=== PATIENT | female | born 1925 | race Caucasian/White ===

== ENCOUNTER 2016-11-20 20:15 | Observation (INO) | payer MEDICARE ==
[~2016-11-20 20:15] MED LIST: LISINOPRIL; LISINOPRIL5 M1 PO; Lisinopril MC; MULTI VITAMIN1 EAC1 PO; VARIOUS VITAMINS; VITAMIN B12
[2016-11-20 21:09] LABS: BASO % 0.7 % (0-2); EOS % 0.3 % (0-7); HCT-HEMATOCRIT 36.6 % (34.0-49.0); HGB-HEMOGLOBIN 12.7 gm/dl (12.0-15.5); LYMPH % 20.4 % (20-45); LYMPH ABSOLUTE COUNT 0.6 tho/cmm (0.8-4.5); MCH (MEAN CORPUSCULAR HGB) 35.9 pg (28.0-32.0); MCHC MEAN CORPUSCULAR HGB CONC 34.7 % (32.0-36.0); MCV (MEAN CELL VOLUME) 103.4 fl (82.0-96.0); MEAN PLATELET VOLUME 11.5 cmc (9.4-12.4); MONOCYTE ABSOLUTE COUNT 0.3 tho/cmm (0.0-1.2); NEUTROPHIL ABSOLUTE COUNT 2.1 tho/cmm (1.6-8.0); NEUTROPHIL-AUTOMATED 2.1 tho/cmm (1.6-8.0); NEUTROPHILS % 68.6 % (40-80); RED BLOOD COUNT 3.54 mil/cmm (4.00-5.20); RED CELL DISTRIBUTION WIDTH 12.3 % (12.4-16.4)
[2016-11-20 21:41] LABS: URINE APPEARANCE CLEAR; URINE BILIRUBIN SMALL (NEG); URINE BLOOD LARGE (NEG); URINE COLOR YELLOW; URINE GLUCOSE (UA) NEGATIVE (NEG); URINE KETONE LARGE (NEG); URINE LEUKOCYTE ESTERASE POSITIVE (NEG); URINE NITRITE NEGATIVE (NEG); URINE PROTEIN MODERATE (NEG); URINE SPECIFIC GRAVITY 1.025 (1.003-1.030)
[2016-11-20 21:42] LABS: URINE EPITHELIAL CELLS 0-2 /[HPF] (0-10); URINE RBC 0-2 /[HPF] (0-5)
[2016-11-20 21:49] LABS: PLATELET COUNT 47 tho/cmm (150-450)
[2016-11-20 21:51] LABS: ANION GAP 11 mmol/L (0-20); BLOOD UREA NITROGEN 18 mg/dl (6-24); CALCIUM 8.7 mg/dl (8.5-10.5); CARBON DIOXIDE-VENOUS 29 mmol/L (22-32); CHLORIDE 97 mmol/l (96-110); CREATININE 0.59 mg/dl (0.50-1.10); GLUCOSE 125 mg/dL (70-110); POTASSIUM 3.8 mmol/L (3.7-5.1); SODIUM 133 mmol/L (135-145); eGFR VALUE FOR BLACK >90 mL/Min
[2016-11-21 10:09] LABS: BASO % 0.4 % (0-2); EOS % 0.4 % (0-7); HGB-HEMOGLOBIN 12.3 gm/dl (12.0-15.5); LYMPH % 33.2 % (20-45); LYMPH ABSOLUTE COUNT 0.9 tho/cmm (0.8-4.5); MCH (MEAN CORPUSCULAR HGB) 36.2 pg (28.0-32.0); MCHC MEAN CORPUSCULAR HGB CONC 35.1 % (32.0-36.0); MCV (MEAN CELL VOLUME) 102.9 fl (82.0-96.0); MONO % 8.3 % (0-12); MONOCYTE ABSOLUTE COUNT 0.2 tho/cmm (0.0-1.2); NEUTROPHIL ABSOLUTE COUNT 1.5 tho/cmm (1.6-8.0); NEUTROPHIL-AUTOMATED 1.5 tho/cmm (1.6-8.0); NEUTROPHILS % 57.7 % (40-80); RED CELL DISTRIBUTION WIDTH 12.3 % (12.4-16.4); WHITE BLOOD COUNT 2.7 tho/cmm (4.0-10.0)
[2016-11-21 10:31] LABS: MAGNESIUM 2.1 mg/dl (1.8-2.6)
[2016-11-21 11:39] LABS: PLATELET COUNT 44 tho/cmm (150-450)
[2016-11-22] MEDS ORDERED: COMBIVENT RESPIM4 G1 INH (10:12)
[2016-11-22] MEDS ORDERED: COREG3.125 M1 PO (10:12)
== END 2016-11-22 15:00 ==
LOC: EDMED 20:15 → EMR2 23:13 → CAR1 11-21 00:50
PROVIDERS: Emergency Medicine; Internal Medicine Cardiovascular Disease; ADMIT Internal Medicine Cardiovascular Disease
DX: R55 Syncope and collapse (principal); I10 Essential (primary) hypertension; I44.7 Left bundle-branch block, unspecified; I45.81 Long QT syndrome; I05.2 Rheumatic mitral stenosis with insufficiency; I42.9 Cardiomyopathy, unspecified; R79.89 Other specified abnormal findings of blood chemistry; Z90.49 Acquired absence of other specified parts of digestive tract; Z90.710 Acquired absence of both cervix and uterus
CPT/HCPCS: G0378; G8978-GP-CI; G8979-GP-CI; G8980-GP-CI; J7030

== ENCOUNTER 2017-01-27 20:12 | Emergency (ER) | payer MEDICARE ==
[~2017-01-27 20:12] MED LIST changes: +COMBIVENT RESPIM4 G1 INH; +COREG3.125 M1 PO
[2017-01-27] MEDS ORDERED: [UNRECOGNIZED DRUG - OTHER] (20:36)
[2017-01-27] MEDS ORDERED: CALCIUM 600 +1 EA14 PO (20:40)
[2017-01-27] MEDS ORDERED: COREG6.25 M1 PO (20:41)
[2017-01-27] MEDS ORDERED: CAT S CLAW PO (20:41)
[2017-01-27] MEDS ORDERED: HAIR, SKIN & N1 EAC1 PO (20:42)
[2017-01-27] MEDS ORDERED: COMBIVENT RESPIM4 G1 (20:42)
[2017-01-27] MEDS ORDERED: ZESTRIL2.5 M3 PO (20:43)
[2017-01-27] MEDS ORDERED: [UNRECOGNIZED DRUG - OTHER] PO (20:44)
[2017-01-27] MEDS ORDERED: PROBIOTIC1 EAC6 PO (20:45)
[2017-01-27] MEDS ORDERED: [UNRECOGNIZED DRUG - OTHER] (20:45)
[2017-01-27] MEDS ORDERED: VITAMIN B125000 MCG PO (20:46)
[2017-01-27] MEDS ORDERED: VITAMIN C500 M3 PO (20:46)
== END 2017-01-27 22:05 ==
LOC: EDMED 20:12
DX: M54.6 Pain in thoracic spine (principal); I11.0 Hypertensive heart disease with heart failure; I50.9 Heart failure, unspecified